=== PATIENT | female | born 1990 | race Caucasian/White ===

== ENCOUNTER 2019-08-09 15:32 | Emergency (ER) | payer MEDICAID ==
[~2019-08-09] VITALS: Ht 175.3 cm; Wt 131.8 kg
[2019-08-09 15:59] VITALS: BP 153/97
[2019-08-09] MEDS ORDERED: ketorolac tromethamine 15mg/ml inj. IM ONE (17:45)
== END 2019-08-09 18:35 | disposition home or self-care (01) ==
LOC: ER 15:33
DX: M25.561 Pain in right knee (principal); M25.572 Pain in left ankle and joints of left foot; W18.39XA Other fall on same level, initial encounter; Y93.89 Activity, other specified; Y92.89 Other specified places as the place of occurrence of the external cause; Y99.8 Other external cause status
CPT/HCPCS: 29505; 73564; 73610; 96372; 99284; J1885

== ENCOUNTER 2023-08-02 18:15 | Emergency (ER) | payer MEDICAID ==
[~2023-08-02] VITALS: Ht 175.3 cm; Wt 125.0 kg
[2023-08-02 18:40] VITALS: TEMP 98.6
[2023-08-02 19:39] LABS: URINE HCG NEGATIVE (NEG)
[2023-08-02 19:50] LABS: BILIRUBIN,URINE NEGATIVE (Neg); CLARITY,URINE CLOUDY (Clear); COLOR,URINE YELLOW (Yellow); GLUCOSE, URINE >=1000 mg/dl (Neg); KETONES,URINE 15 mg/dl (Neg); LEUKOCYTE ESTERASE ,URINE NEGATIVE (Neg); NITRITES, URINE POSITIVE (Neg); OCCULT BLOOD,URINE MODERATE (Neg); PROTEIN,URINE NEGATIVE (Neg); UROBILINOGEN,URINE 0.2 E.U/dL (0.2-1.0)
[2023-08-02 19:56] LABS: BASOPHILS # (AUTO) 0.1 X10'3 (0-0.2); BASOPHILS % (AUTO) 0.5 % (0-1); EOSINOPHILS # (AUTO) 0.4 X10'3 (0-0.9); EOSINOPHILS % (AUTO) 3.8 % (0-6); HEMATOCRIT 41.7 % (35.0-45.0); HEMOGLOBIN 13.8 g/dl (12.0-16.0); LYMPHOCYTES # (AUTO) 3.1 X10'3 (1.1-4.8); LYMPHOCYTES % (AUTO) 27.2 % (21-51); MEAN CORPUSCULAR HEMOGLOBIN 28.4 PG (27.0-31.0); MEAN CORPUSCULAR HGB CONC 33.2 g/dL (33.0-36.5); MEAN CORPUSCULAR VOLUME 85.7 FL (78-98); MEAN PLATELET VOLUME 7.6 FL (7.4-10.4); MONOCYTES # (AUTO) 0.9 X10'3 (0-0.9); MONOCYTES % (AUTO) 7.8 % (2-12); NEUTROPHILS # (AUTO) 6.8 X10'3 (1.8-7.7); NEUTROPHILS % (AUTO) 60.7 % (42-75); PLATELET COUNT 412 X10'3 (140-440); RED BLOOD COUNT 4.86 X10'6 (4.20-5.60); RED CELL DISTRIBUTION WIDTH 13.2 % (11.5-14.5); WHITE BLOOD COUNT 11.3 X10'3 (4.5-11.0)
[2023-08-02 19:56] LABS: UA COLLECTION TYPE CLN CATCH MIDSTREAM
[2023-08-02 19:58] LABS: SQUAMOUS EPITHELIAL CELL,UR MODERATE /LPF (FEW)
[2023-08-02 20:02] LABS: BACTERIA,URINE 3+ /HPF (Neg); RBC,URINE 50-100 /HPF (0-2)
[2023-08-02 20:03] LABS: TRANSITIONAL EPI CELLS,URINE FEW /HPF; WBC,URINE 50-100 /HPF (0-4)
[2023-08-02 20:10] LABS: ALANINE AMINOTRANSFERASE 20 U/L (12-78); ALBUMIN 3.4 G/DL (3.4-5.0); ALBUMIN/GLOBULIN RATIO 0.8 (1.1-1.5); ALKALINE PHOSPHATASE 60 IU/L (46-116); ANION GAP 9 (8-16); ASPARTATE AMINO TRANSFERASE 12 U/L (10-37); BILIRUBIN,TOTAL 0.3 MG/DL (0.1-1.0); BLOOD UREA NITROGEN 9 MG/DL (7-18); BUN/CREATININE RATIO 14.3 (10.0-20.0); CALCIUM 8.9 MG/DL (8.5-10.1); CHLORIDE 100 MMOL/L (99-107); CREATININE 0.63 MG/DL (0.40-0.90); GLUCOSE 286 MG/DL (70-104); LIPASE 33 U/L (16-77); POTASSIUM 3.6 MMOL/L (3.5-5.1); SODIUM 136 MMOL/L (135-145); TOTAL CARBON DIOXIDE 26.8 MMOL/L (24-32); TOTAL PROTEIN 7.5 G/DL (6.4-8.2); eCRCL 132 ML/MIN; eGFR > 90 ML/MIN
[2023-08-02 21:22] VITALS: BP 122/87; PULSE 84; RESP 16; O2SAT 99
[2023-08-02] MEDS ORDERED: CefTRIAXone 1000mg IM Kit (w/lidocaine diluent) IM ONE (22:10)
[2023-08-02] MEDS ORDERED: CEPH-585 PO (22:12)
[2023-08-02] MEDS ORDERED: PHEN-716 PO (22:12)
[2023-08-02] MEDS: phenazopyridine 100mg tablet PO ONE (22:44)
== END 2023-08-02 23:00 | disposition home or self-care (01) ==
LOC: ER 18:15
DX: N39.0 Urinary tract infection, site not specified (principal)
CPT/HCPCS: 36415; 80053; 81001; 81025; 83690; 85025; 87077; 87088; 87186; 99283

== ENCOUNTER 2023-08-04 17:38 | Emergency (ER) | payer MEDICAID ==
[~2023-08-04] VITALS: Ht 162.6 cm; Wt 105.0 kg
[~2023-08-04 17:38] MED LIST: CEPH-585 PO; PHEN-716 PO
[2023-08-04 18:30] LABS: BASOPHILS % (AUTO) 0.3 % (0-1); EOSINOPHILS % (AUTO) 0.4 % (0-6); HEMATOCRIT 41.5 % (35.0-45.0); HEMOGLOBIN 14.2 g/dl (12.0-16.0); LYMPHOCYTES # (AUTO) 0.7 X10'3 (1.1-4.8); LYMPHOCYTES % (AUTO) 8.8 % (21-51); MEAN CORPUSCULAR HEMOGLOBIN 28.9 PG (27.0-31.0); MEAN CORPUSCULAR HGB CONC 34.1 g/dL (33.0-36.5); MEAN CORPUSCULAR VOLUME 84.7 FL (78-98); MEAN PLATELET VOLUME 7.7 FL (7.4-10.4); MONOCYTES # (AUTO) 0.7 X10'3 (0-0.9); MONOCYTES % (AUTO) 9.1 % (2-12); NEUTROPHILS # (AUTO) 6.4 X10'3 (1.8-7.7); NEUTROPHILS % (AUTO) 81.4 % (42-75); PLATELET COUNT 353 X10'3 (140-440); RED CELL DISTRIBUTION WIDTH 13.4 % (11.5-14.5); WHITE BLOOD COUNT 7.8 X10'3 (4.5-11.0)
[2023-08-04 18:41] LABS: ALBUMIN 3.2 G/DL (3.4-5.0); ANION GAP 14 (8-16); BLOOD UREA NITROGEN 7 MG/DL (7-18); BUN/CREATININE RATIO 9.6 (10.0-20.0); CHLORIDE 98 MMOL/L (99-107); CREATININE 0.73 MG/DL (0.40-0.90); GLUCOSE 332 MG/DL (70-104); POTASSIUM 3.9 MMOL/L (3.5-5.1); SODIUM 134 MMOL/L (135-145); eCRCL 113 ML/MIN; eGFR > 90 ML/MIN
[2023-08-04 19:59] VITALS: TEMP 98.8
[2023-08-04] MEDS: normal saline 1000ML IV soln IVB ONE (20:41)
[2023-08-04] MEDS: ketorolac trometh. 30mg/ml inj. IV ONE (21:13)
[2023-08-04] MEDS: acetaminophen 325mg tablet PO ONE (21:14)
[2023-08-04 22:16] VITALS: BP 134/80; PULSE 73; RESP 16; O2SAT 96
== END 2023-08-04 22:22 | disposition home or self-care (01) ==
LOC: ER 17:39
DX: N39.0 Urinary tract infection, site not specified (principal); Z79.2 Long term (current) use of antibiotics; Z79.899 Other long term (current) drug therapy
CPT/HCPCS: 36415; 71045; 80048; 84484; 85025; 93005; 96361; 96374; 99285; J1885; J7030

== ENCOUNTER 2024-12-23 21:37 | Emergency (ER) | payer BC, MEDICAID ==
[~2024-12-23] VITALS: Ht 175.3 cm; Wt 130.0 kg
[~2024-12-23 21:37] MED LIST changes: -CEPH-585 PO
[2024-12-23 21:43] VITALS: BP 157/99; PULSE 98; RESP 18; O2SAT 99
[2024-12-23] MEDS ORDERED: CEPH-585 PO (23:12)
--- NOTE | 2024-12-23 23:12 | Physician Documentation ---
History of Present Illness ~ Chief Complaint: Wound Stated Complaint: INFECTION ON ABD Time Seen by MD: 22:19 Primary Medical Doctor: none Source: patient Mode of Arrival: POV Exam Limitations: no limitations HPI Patient presents with a complaint of infection on stomach. She states a few days ago she developed a red charles that is worsening today. No fevers, chills. No nausea vomiting. No abdominal pain. History of diabetes. Was asked, but otherwise denies review of systems. Tetanus within 5 years?: No Medication Reconciliation Allergies: Coded Allergies: No Known Allergies (Unverified , 08/09/19) Scheduled Cephalexin*Monohydrate* (Keflex*), 1 CAP PO QID Phenazopyridine HCl (Pyridium), 1 TAB PO Q8H Past Medical History Past Medical History: Diabetes Past Surgical History: cholecystectomy Smoking Status: Never smoker Alcohol Use: None Drug Use: none Review of Systems ROS Review of systems negative except specifically documented in HPI. Physical Exam Vital Signs: RN Vital Signs have been reviewed: Yes, Temperature: 97.0, Heart Rate: 98, Respiratory Rate: 18, BP: 157/99, Pulse Oximetry: 99, Weight: 130.000 Pulse Oximetry Reflects: adequate oxygenation Physical Exam General: Awake, alert, oriented. No apparent distress Respiratory: Lungs are clear to auscultation bilaterally. No respiratory distress. Chest: Normal shape and size. No accessory muscle use. Cardiovascular: Regular rate and rhythm. S1-S2. No murmur, gallop, rub. Gastrointestinal: Abdomen is soft. Nontender to palpation. Bowel sounds present. Psychiatric: Normal mood and affect. Skin: Normal color. Warm and dry. 4 x 4 cm area of erythema. No fluctuance. Progress Results/Orders Results/Orders Completed Orders - RUDY BARROW NP Cephalexin Capsule (Keflex Capsule) (12/23/24 23:15) Vital Signs 12/23/24 12/23/24 21:43 23:38 Temp 97.0 97.0 Pulse 98 Resp 18 B/P (MAP) 157/99 Pulse Ox 99 Medical Decision Making Findings Patient presents for a wound on her abdomen. Denies injury. She denies fevers or chills. No evidence of systemic infection. Vital signs are stable. No area of fluctuance that her is Eric currently drainable. She will be started on antibiotics. Follow up instructions provided. Differential Dx:Considerations: Include: Abscess, Cellulitis Departure Time of Disposition: 23:09 Disposition: 01 HOME / SELF CARE / HOMELESS Impression: Primary Impression: Abscess Condition: Stable Discharge Instructions: Abscess, Care After Additional Instructions: Your wound does not have an area that I can drain, but I am concerned for an infection. I will start you on antibiotics. Apply warm compresses to the wound. If wound worsens, your fevers or chills or any other concerns planes returned to the emergency department. Referrals: NO PRIMARY CARE PROVIDER (PCP) Prescriptions Cephalexin*Monohydrate* (Keflex*) 500 Mg Capsule 1 CAP PO QID, #28 CAP Prov: RUDY BARROW NP 12/23/24 Education Educated: Patient Educated regarding: diagnosis, treatment, need for follow up Signature Scribe Signature: No scribe Attestation: The note accurately reflects work and decisions made by me.Rudy Barrow - NERIS 12/24/24 10:17 This note was created with the assistance of voice recognition software whereby errors in grammar, syntax, and/or spelling may have occurred despite active pr oofreading efforts by the author. Please do not hesitate to contact the provider for clarification or for questions regarding the content of this document. RUDY BARROW NP Dec 23, 2024 23:12
[2024-12-23 23:38] VITALS: TEMP 97
== END 2024-12-23 23:42 | disposition home or self-care (01) ==
LOC: ER 21:38
DX: L02.211 Cutaneous abscess of abdominal wall (principal); E11.9 Type 2 diabetes mellitus without complications; Z90.49 Acquired absence of other specified parts of digestive tract
CPT/HCPCS: 99283